=== PATIENT | female | born 1930 | race Caucasian/White ===

== ENCOUNTER 2018-12-06 14:29 | Inpatient (IN) | payer MEDICARE, BC ==
[2018-12-06] MEDS: SODIUM CHLORIDE 0.9% 1L BAG IV* (14:44)
[2018-12-06] MEDS: DILTIAZEM 25 MG INJ IV ×4 (14:45→16:52)
[2018-12-06 14:51] LABS: ADD MAN DIFF? NO
[2018-12-06 15:08] LABS: ABNORMAL IP MESSAGE 1; BASOPHIL # 0.2 10^3/ul (0.0-0.1); BASOPHILS % 0.8 % (0.0-2.0); EOSINOPHILS # 0.1 10^3/ul (0.0-0.5); EOSINOPHILS % 0.5 % (0.0-7.0); HEMATOCRIT 30.3 % (37.0-47.0); HEMOGLOBIN 9.3 g/dl (12.0-16.0); LYMPHOCYTES # 2.6 10^3/ul (0.8-2.9); LYMPHOCYTES % 12.2 % (15.0-51.0); MEAN CORPUSCULAR HEMOGLOBIN 25.6 pg (29.0-33.0); MEAN CORPUSCULAR HGB CONC 30.7 g/dl (32.0-37.0); MEAN CORPUSCULAR VOLUME 83.5 fl (82.0-101.0); MEAN PLATELET VOLUME 9.5 fl (7.4-10.4); MONOCYTE # 2.1 10^3/ul (0.3-0.9); MONOCYTES % 9.7 % (0.0-11.0); NEUTROPHIL # 15.7 10^3/ul (1.6-7.5); NEUTROPHILS % 73.5 % (39.0-77.0); NUCLEATED RED BLOOD CELLS% 0.1 /100WBC (0.0-0.0); PLATELET COUNT 552 10^3/UL (140-415); RED BLOOD COUNT 3.63 10^6/ul (4.20-5.40); URINE BLOOD (Dip) POC 1+ (NEGATIVE); URINE GLUCOSE (Dip) POC Negative (NEGATIVE); URINE KETONES (Dip) POC Negative (NEGATIVE); URINE LEUKOCYTE EST (Dip) POC Trace (NEGATIVE); URINE NITRITE (Dip) POC Negative (NEGATIVE); URINE TOTAL PROTEIN POC 1+ (NEGATIVE)
[2018-12-06 15:08] LABS: URINE PH (Dip) POC 5.5 (5.0-8.5)
[2018-12-06 15:08] LABS: WHITE BLOOD COUNT 21.4 10^3/ul (4.8-10.8)
[2018-12-06] MEDS: MEROPENEM 1 GM/50ML(PMX) 50 ML IVPB (15:08)
[2018-12-06 15:27] LABS: ALANINE AMINOTRANSFERASE 42 IU/L (13-69); ALBUMIN 2.6 g/dl (3.3-4.9); ALBUMIN/GLOBULIN RATIO 0.83; ALKALINE PHOSPHATASE 137 IU/L (42-121); ANION GAP 19 (5-13); ASPARTATE AMINO TRANSFERASE 78 IU/L (15-46); BLOOD UREA NITROGEN 36 mg/dl (7-20); CALCIUM 8.5 mg/dl (8.4-10.2); CARBON DIOXIDE 10 mmol/L (21-31); CHLORIDE 116 mmol/L (97-110); CREATININE 1.62 mg/dl (0.44-1.00); GLUCOSE 68 mg/dl (70-220); INR 1.33; POTASSIUM 5.3 mmol/L (3.5-5.1); PROTIME 16.6 Sec (11.9-14.9); PT RATIO 1.3; SODIUM 145 mmol/L (135-144); TOTAL PROTEIN 5.7 g/dl (6.1-8.1)
[2018-12-06 15:28] LABS: PARTIAL THROMBOPLASTIN TIME 32.6 Sec (23.0-35.0)
[2018-12-06 15:30] LABS: ADD UMIC YES; UR ASCORBIC ACID 40 mg/dL (NEGATIVE); UR BILIRUBIN (Dip) NEGATIVE (NEGATIVE); UR BLOOD (Dip) 1+ mg/dL (NEGATIVE); UR CLARITY CLEAR (CLEAR); UR COLOR YELLOW (YELLOW); UR GLUCOSE (Dip) NEGATIVE (NEGATIVE); UR KETONES (Dip) NEGATIVE (NEGATIVE); UR LEUKOCYTE ESTERASE (Dip) 1+ Leu/ul (NEGATIVE); UR NITRITE (Dip) NEGATIVE (NEGATIVE); UR RBC 7 /HPF (0-5); UR SPECIFIC GRAVITY (Dip) 1.013 (1.003-1.030); UR TOTAL PROTEIN (Dip) NEGATIVE (NEGATIVE); UR UROBILINOGEN (Dip) NEGATIVE (NEGATIVE); UR WBC 39 /HPF (0-5)
[2018-12-06 15:31] LABS: POSITIVE DIFF @See below
[2018-12-06 15:42] LABS: TROPONIN-I 0.426 ng/ml (0.000-0.120)
[2018-12-06 15:44] LABS: FREE THYROXINE INDEX (Calc) 3.67 ug/ml (0.65-3.89); T3 UPTAKE 51.7 % (23.5-40.5); T4 (THYROXINE) 7.1 ug/dl (5.5-11.0)
[2018-12-06] MEDS: VANCOMYCIN 1 GM (PMX) 250 ML IVPB (16:01)
[2018-12-06] MEDS: ALTEPLASE (CATHFLO) 2 MG INJ CATHETER (16:24)
[2018-12-06] MEDS ORDERED: NORepinephrine 8MG/250 ML (PMX 250 ML (16:57)
[2018-12-06 16:58] LABS: B-TYPE NATRIURETIC PEPTIDE 51100 PG/ML (0-450)
[2018-12-06] MEDS: DEXTROSE 50% 50 ML SYRINGE IV (16:58)
[2018-12-06] MEDS: SOD CHLORIDE 0.9% 1,770 ML IV (17:20)
[2018-12-06] MEDS: NORepinephrine 8MG/250 ML (PMX 250 ML IV (17:22)
[2018-12-06] MEDS: DILTIAZEM-D5W 125MG/125ML DRIP 125 ML IV ×3 (17:59→23:41)
[2018-12-06] MEDS ORDERED: NACL 0.9% 3 ML SYG IV (18:30)
[2018-12-06] MEDS ORDERED: ACETAMINOPHEN 325 MG TAB PO (18:30)
[2018-12-06] MEDS ORDERED: HYDROCODONE/APAP (5/325) TAB PO (18:30)
[2018-12-06] MEDS ORDERED: DOCUSATE SODIUM 100 MG CAP PO (18:30)
[2018-12-06] MEDS ORDERED: MAGNESIUM HYDROXIDE 30ML CUP PO (18:30)
[2018-12-06] MEDS ORDERED: ALBUTEROL/IPRATROPIUM (NEB) 3 ML AMP HHN (18:30)
[2018-12-06] MEDS ORDERED: VANCOMYCIN IV PER PHARMACY XX (18:30)
[2018-12-06] MEDS ORDERED: ONDANSETRON 4 MG INJ IV (18:30)
[2018-12-06] MEDS ORDERED: morphine 2 MG INJ IV (18:30)
[2018-12-06] MEDS ORDERED: NITROGLYCERIN (SL) 0.4 MG TAB SL (18:30)
[2018-12-06] MEDS ORDERED: SODIUM CHLORIDE 0.45% IV (19:30)
[2018-12-06] MEDS ORDERED: SOD CHLORIDE 0.9% 1,000 ML IV (19:30)
[2018-12-06] MEDS ORDERED: SODIUM BICARBONATE IV (19:30)
[2018-12-06] MEDS ORDERED: SOD CHLORIDE 0.45% 1,000 ML IV (19:30)
[2018-12-06 19:52] LABS: LACTIC ACID 8.5 mmol/L (0.5-2.0)
[2018-12-06 20:01] LABS: FREE T4 (FREE THYROXINE) 1.71 ng/dl (0.85-1.93)
[2018-12-06 20:10] LABS: SODIUM,URINE RANDOM 42 mmol/L (30-90)
[2018-12-06 20:11] LABS: CREATININE,URINE RANDOM 67.39 mg/dl (20-320); PROTEIN/CREAT RATIO 0.54 RATIO
[2018-12-06] MEDS: LEVOFLOXACIN 750MG/D5W (PMX) 150 ML IVPB (20:18)
[2018-12-06 20:32] LABS: TROPONIN-I 0.412 ng/ml (0.000-0.120)
[2018-12-06] MEDS ORDERED: FAMOTIDINE 20 MG INJ IV (21:00)
[2018-12-06 22:46] LABS: INR 2.06; PROTIME 23.3 Sec (11.9-14.9); PT RATIO 1.8
[2018-12-06 22:47] LABS: PARTIAL THROMBOPLASTIN TIME 42.3 Sec (23.0-35.0)
[2018-12-06 22:52] LABS: LACTIC ACID 7.1 mmol/L (0.5-2.0)
[2018-12-06] MEDS: LORAZEPAM 2 MG INJ IV (23:37)
[2018-12-06] MEDS: FAMOTIDINE 20 MG INJ IV (23:38)
[2018-12-06] MEDS: AZTREONAM 2 GM in SOD CHLORIDE 0.9% 100 ML IVPB (23:38)
[2018-12-06] MEDS: HEPARIN 5,000 UNIT/1 ML VIAL SC (23:39)
[2018-12-06] MEDS: NORepinephrine 32 MG in DEXTROSE 5% 218 ML IV (23:40)
[2018-12-06] MEDS: SODIUM BICARBONATE (IV ADD) 50 MEQ in SOD CHLORIDE 0.45% 950 ML IV (23:40)
[2018-12-07 02:37] LABS: LACTIC ACID 10.7 mmol/L (0.5-2.0)
[2018-12-07 02:49] LABS: TROPONIN-I 0.483 ng/ml (0.000-0.120)
[2018-12-07] MEDS: SOD CHLORIDE 0.9% 250 ML IV ×2 (02:56→04:30)
[2018-12-07] MEDS: AZTREONAM 1 GM/NS (PMX) 50 ML IVPB (06:22)
[2018-12-07 07:30] LABS: AADO2 Arterial 575.6 mmHg (7.0-24.0); Allen Test ACCEPTAB; Arterial Blood Gas Oxygen Sat 95.9 mmHG (95.0-100.0); Arterial COHb 0.2 % (0.0-3.0); Arterial Fraction of Oxyhgb 95.4 % (93.0-99.0); Arterial HCO3 5.5 mmol/L (22.0-26.0); Arterial MetHb 0.3 % (0.0-1.5); Arterial pCO2 22.5 mmhg (35-45); Blood Gas IEPAP 15/5; Blood Gas PS 10; MODE MASK - BIPAP; Site Right Radial
[2018-12-07] MEDS: NA BICARBONATE 8.4% 50 ML SYG IV (08:06)
[2018-12-07 08:12] LABS: ABNORMAL IP MESSAGE 1; HEMATOCRIT 29.2 % (37.0-47.0); HEMOGLOBIN 8.8 g/dl (12.0-16.0); MEAN CORPUSCULAR HEMOGLOBIN 25.8 pg (29.0-33.0); MEAN CORPUSCULAR HGB CONC 30.1 g/dl (32.0-37.0); MEAN CORPUSCULAR VOLUME 85.6 fl (82.0-101.0); MEAN PLATELET VOLUME 9.9 fl (7.4-10.4); NUCLEATED RED BLOOD CELLS% 0.3 /100WBC (0.0-0.0); PLATELET COUNT 582 10^3/UL (140-415); RED BLOOD COUNT 3.41 10^6/ul (4.20-5.40)
[2018-12-07 08:12] LABS: WHITE BLOOD COUNT 35.3 10^3/ul (4.8-10.8)
[2018-12-07 08:21] LABS: ADD MAN DIFF? YES; POSITIVE DIFF @See below
[2018-12-07 08:32] LABS: ANION GAP 15 (5-13); BLOOD UREA NITROGEN 37 mg/dl (7-20); CALCIUM 7.6 mg/dl (8.4-10.2); CHLORIDE 121 mmol/L (97-110); CREATININE 1.97 mg/dl (0.44-1.00); GLUCOSE 53 mg/dl (70-220); MAGNESIUM 1.7 mg/dl (1.7-2.5); PHOSPHORUS 8.7 mg/dl (2.5-4.9); SODIUM 144 mmol/L (135-144)
[2018-12-07 08:41] LABS: POTASSIUM 6.2 mmol/L (3.5-5.1)
[2018-12-07 08:42] LABS: CARBON DIOXIDE 8 mmol/L (21-31)
[2018-12-07 08:43] LABS: LACTIC ACID 9.1 mmol/L (0.5-2.0)
[2018-12-07] MEDS ORDERED: LEVALBUTEROL (NEB) 0.63 MG/3 ML AMP HHN (09:00)
[2018-12-07] MEDS: HEPARIN 5,000 UNIT/1 ML VIAL SC (09:00)
[2018-12-07 09:06] LABS: HDL CHOLESTEROL 12 mg/dl (33-92); TRIGLYCERIDES 94 mg/dl (0-149)
[2018-12-07 09:11] LABS: CHOLESTEROL < 50 mg/dl (100-200)
[2018-12-07] MEDS: SODIUM BICARBONATE (IV ADD) 100 MEQ in SOD CHLORIDE 0.9% 1,000 ML IV (09:30)
[2018-12-07] MEDS: SODIUM POLYSTYRENE 15 GM KIT (POWDER + SORBITOL) PO (09:57)
[2018-12-07 09:59] LABS: URIC ACID 11.7 mg/dl (3.1-7.9)
[2018-12-07 09:59] LABS: CREATINE KINASE 585 IU/L (23-200)
[2018-12-07] MEDS ORDERED: LORAZEPAM 2 MG INJ IV ×2 (10:00)
[2018-12-07] MEDS ORDERED: ARTIFICIAL TEARS 15 ML OPH BOTH EYES (10:00)
[2018-12-07] MEDS ORDERED: DIMETHICONE STICK TOP (10:00)
[2018-12-07 10:02] LABS: HEMOGLOBIN A1C 5.2 % (0-5.9)
[2018-12-07] MEDS: morphine (DRIP) 100 MG/100 ML 100 ML IV ×2 (11:08→13:10)
[2018-12-07 11:37] LABS: ANISOCYTOSIS 1+ (0-0); BAND NEUTROPHILS #M 1.4 10^3/ul (0.0-0.6); BAND NEUTROPHILS % (M) 4 % (0-4); ERYTHROBLAST% (NRBC) (M) 1 % (0-0); GIANT THROMBO% (M) 3 % (0-0); LYMPHOCYTES #M 1.4 10^3/ul (0.8-2.9); LYMPHOCYTES % (M) 4 % (15-51); MICROCYTOSIS 1+ (0-0); MONOCYTE #M 2.1 10^3/ul (0.3-0.9); MONOCYTES % (M) 6 % (0-11); MYELOCYTES #M 0.7 10^3/ul (0.0-0.0); MYELOCYTES % (M) 2 % (0-0); OVALOCYTES 1+ (0-0); PLATELET ESTIMATE INCREASED; POIKILOCYTOSIS 1+ (0-0); POLYCHROMASIA 1+ (0-0); PROMYELOCYTES #M 0.3 10^3/ul (0-0); PROMYELOCYTES % (M) 1 % (0-0); RBC MORPHOLOGY COMMENT @See below; SEG NEUT #M 29.8 10^3/ul (1.6-7.5); SEGMENTED NEUTROPHILS (M) % 83 % (39-77); SMUDGE%M 15 % (0-0); WBC MORPHOLOGY COMMENT @See below
[2018-12-07] MEDS ORDERED: VANCOMYCIN 500 MG (PMX) 100 ML IVPB (16:00)
[2018-12-08] MEDS ORDERED: LEVOFLOXACIN 750MG/D5W (PMX) 150 ML IVPB (20:00)
== END 2018-12-07 12:35 | disposition expired | DRG 871 ==
LOC: E/R 14:29 → ICU 17:53
PROC: 5A09357 Assistance with Respiratory Ventilation, Less than 24 Consecutive Hours, Continuous Positive Airway Pressure (ICD-10-PCS; principal; 2018-12-06)
DX: A41.9 Sepsis, unspecified organism (principal); J18.9 Pneumonia, unspecified organism; R65.21 Severe sepsis with septic shock; I21.4 Non-ST elevation (NSTEMI) myocardial infarction; N17.0 Acute kidney failure with tubular necrosis; J96.01 Acute respiratory failure with hypoxia; E87.0 Hyperosmolality and hypernatremia; I48.91 Unspecified atrial fibrillation; E87.5 Hyperkalemia; E16.2 Hypoglycemia, unspecified; E86.0 Dehydration; R60.9 Edema, unspecified; Z66 Do not resuscitate
CPT/HCPCS: 36600; 71045; 76775; 80048; 80053; 80061; 81001; 81003; 82550; 82570; 82803; 83036; 83605; 83735; 83880; 84100; 84300; 84436; 84439; 84443; 84479; 84484; 84560; 85025; 85610; 85730; 87040; 87086; 87400; 89190; 93005; 94660; 96361; 96365; 96366; 96367; 96375; 96376; 99291-25